=== PATIENT | female | born 1935 ===

== ENCOUNTER → 2022-09-09 | Outpatient (CLI) | payer SELFPAY | END | disposition home or self-care (01) | LOC: LAB SHORT 18:19 | DX: L08.9 Local infection of the skin and subcutaneous tissue, unspecified (principal) | CPT/HCPCS: 87070; 87077; 87186; 87205 ==

== ENCOUNTER → 2022-09-14 | Outpatient (CLI) | payer SELFPAY | END | disposition home or self-care (01) | DX: L08.9 Local infection of the skin and subcutaneous tissue, unspecified (principal) ==